=== PATIENT | female | born 1980 | race Caucasian/White ===

== ENCOUNTER → 2018-02-24 | Outpatient (CLI) | payer OTHER ==
[~2018-02-24] MED LIST: ACETAMINOPHEN-120 ML PO; AMPHETAMINE SAL20 M1 PO; HYDROCODONE-AP1 EAC6 PO; METFORMIN HCL500 MG PO; PROZAC10 MG PO; XANAX 0.5 MG0.5 MG PO; [UNRECOGNIZED DRUG - OTHER]
== END ==
LOC: CAT 09:20
DX: M54.5 Low back pain (principal); R82.99 Other abnormal findings in urine; R30.0 Dysuria; R31.29 Other microscopic hematuria

== ENCOUNTER → 2018-08-22 | Outpatient (CLI) | payer OTHER | LOC: RAD 13:56 | DX: R07.81 Pleurodynia (principal); F32.9 Major depressive disorder, single episode, unspecified; E28.2 Polycystic ovarian syndrome; F17.210 Nicotine dependence, cigarettes, uncomplicated; Z72.89 Other problems related to lifestyle ==

== ENCOUNTER → 2018-09-08 | Outpatient (CLI) | payer OTHER | LOC: MRI 09-07 16:42 | DX: M47.26 Other spondylosis with radiculopathy, lumbar region (principal); M51.16 Intervertebral disc disorders with radiculopathy, lumbar region ==

== ENCOUNTER → 2018-10-30 | Outpatient (CLI) | payer OTHER ==
[~2018-10-30] VITALS: Ht 157.5 cm; Wt 67.6 kg
[~2018-10-30] MED LIST changes: +BRINTELLIX5 MG PO; +DURAGESIC1 EACH TRANSDERM; +MYDAYIS ER 1212.5 MG PO; +NEURONTIN 300300 M1 PO; +VITAMIN D5000 UNIT PO; +ZOFRAN ODT4 MG DISSOLVE
--- NOTE | ~2018-10-30 | HPC ---
[facility] [place] [address] PAIN MANAGEMENT CONSULTATION Name: EDWIN SALINAS Room #: REG LAWRENCE Vargas.#: [id number] Admission: 10/30/18 Attend Phys: Kelvin Medina MD Discharge: Date of : 84 Report #: [id number] THIS REPORT FOR: //name// CC: JULIUS Medina CHIEF COMPLAINT: Chronic pain in the low back. HISTORY OF PRESENT ILLNESS: The patient is a 38-year-old who I am seeing today at the request of Dr. Marie. She reports that she has had constant aching pain in her low back dating back to 2013. There was no inciting injury. No motor vehicle accident. She reports the pain came on gradually. She was initially treated with physical therapy for 6 weeks and reported little improvement. She saw a chiropractor for a month also and gave up on that because of its lack of improvement. She has tried some massage at home and uses a TENS unit on a regular basis. She describes her pain as across the low back, continuous, steady, burning, shooting, sharp and stabbing, increased with cold temperature, prolonged sitting and standing. She obtains relief from heat, rest, TENS unit and medication. 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 She has randomly taken a day or two off work because of chronic pain. She is single, and has 2 daughters, 17 and 11 years old. She is able to remain active with her family. We did not go into great detail about the stresses of raising preteen and teenage daughters. This is a stressful time of life. She continues to smoke 1 pack of cigarettes a day and has done so for 20 years. She drinks alcohol in the social setting 4-5 times per week. She has a group of friends that she associates with, most of whom also smokes cigarettes. She reports that she has had chronic depression and anxiety, but has not seen a psychologist or psychiatrist. Pain drawing shows her physical discomfort as a burning, stabbing sensation bilaterally across the low back with similar sensations into the buttocks and stabbing sensation at times into her knees. The pain does radiate down the posterior aspect of both legs and what would be described as a radicular distribution of S1. MEDICATIONS: Trintellix 5 mg daily, gabapentin 300 mg b.i.d., hydrocodone 5/325 one tablet every 4-[address] Krause is her current provider of opioids, and she is allowed 90 tablets per month. There has been a tapering over the course of the last couple of months. She is also on fentanyl patch, which was once 25 mcg, now down to 12. Metformin 500 mg 1 at bedtime, control pills 1 at bedtime, vitamin D 1 cap weekly 50,000 units. Alprazolam 0.5 mg 1 tablet t.i.d. p.r.n. Mydayis 12.5 mg [address] [address] PAIN MANAGEMENT CONSULTATION Name: EDWIN SALINAS Room #: REG LAWRENCE Mendoza#: [id number] Admission: 10/30/18 Attend Phys: Kelvin Medina MD Discharge: Date of : 84 Report #: [id number] ALLERGIES: SULFA. PAST MEDICAL HISTORY: Remarkable for chronic depression and chronic back pain. PAST SURGICAL HISTORY: D and C in 2016. Laparoscopic cholecystectomy in 2017. SOCIAL HISTORY: Included in the discussion of history of present illness. REVIEW OF SYSTEMS: Completed by the patient, describes occasional nausea, nocturia, numbness and tingling sensations into the legs, nervousness and depression. PHYSICAL EXAMINATION: GENERAL: She is a pleasant, 38-year-old, soft spoken and direct. VITAL SIGNS: Blood pressure 114/70, heart rate 109, respirations 16. She is 5 feet, 2 inches, 149 pounds, BMI 27.2. She is able to move independently from sitting to standing position. Her gait is nonantalgic. CHEST: Clear. CARDIAC: Rhythm is regular. MUSCULOSKELETAL: Examination of her spine reveals good alignment. No evidence of scoliosis. There is no tenderness in the upper back. Mild tenderness across the lumbosacral segment. Range of motion of the spine is excellent in flexion, extension, rotation, [id number] tilt. Straight leg raising is mildly positive for some discomfort into the posterior aspect of each leg. Mild tenderness noted in each knee. No edema is noted. Deep tendon reflexes are 2+ knees and ankles and sensation is intact in lower extremities. MRI is reviewed from 09/08/2018. It shows only mild lumbar spondylosis. There is no significant disk bulging or protrusion at any level. There is no significant central spinal canal or neural foraminal stenosis at any level. This would be considered normal MRI. Bilateral hip x-rays reviewed and negative evidence of degenerative disease. IMPRESSION: Chronic low back pain with lumbago. RECOMMENDATIONS: I spent most of today's visit after assessment and counseling. Her pain is very treatable. The most important aspect of treatment of course is wellness behaviors which would encompass a regular exercise program, avoidance of tobacco and tapering of medications, which may have significant side effects and long-term concerns for a 38-year-old with normal x-rays. She is motivated to try and taper her medications as she has seen many patients who she feels are overmedicated in current health care. The goal is to minimize the use of centrally acting medications. All opioids remain of focus. We discussed the issue of polypharmacy at some length. She is on 5 centrally acting medications. We also include alcohol and tobacco. There are 7 [facility] [address] [place] [address] PAIN MANAGEMENT CONSULTATION Name: EDWIN SALINAS [facility] #: [facility].#: [id number] Admission: 10/30/18 Attend Phys: Kelvin Medina MD Discharge: Date of : 84 Report #: [id number] medications or habits that have some significant effect on her. It would be a goal to taper her opioids, and I will continue to assist in this process. I would recommend that she finish her current prescription of fentanyl patches and at 12 mcg, she should be able to easily stop without significant withdrawal if she continues on her hydrocodone. We would then work on hydrocodone and tapering at the lowest effective dose, and I would hope that in this 38-year-old, we might be able to completely eliminate opioids altogether. We raised the question of polypharmacy several times. There is a 38-year-old need to be on antidepressant stimulant opioid nerve pain medication? She would like to be free of these medicines, but is obviously concerned about how she will feel off them. Her chronic depression, certainly needs to be addressed, and this may be improved by wellness behaviors, particularly by exercise, and we decided medical evidence that shows exercise helping mood. One step at a time. I will help to try and taper off opioid medication and reinforce wellness as I am sure Dr. Marie is doing in her office. I think there is good reason for optimism here that she can learn to manage her pain without medication. No injections are indicated at this time. By: [id number] Kelvin Medina MD /nt
[2018-10-30 09:20] VITALS: BP 114/70
== END ==
LOC: PAIN 00:33
DX: M54.40 Lumbago with sciatica, unspecified side (principal); G89.29 Other chronic pain; Z79.899 Other long term (current) drug therapy

== ENCOUNTER → 2018-11-23 | Outpatient (CLI) | payer OTHER ==
[~2018-11-23] MED LIST changes: +HYDROCODON-ACE1 EAC7 PO
== END ==
LOC: CAT 15:11
DX: K57.30 Diverticulosis of large intestine without perforation or abscess without bleeding (principal); N83.292 Other ovarian cyst, left side; K46.9 Unspecified abdominal hernia without obstruction or gangrene; R31.29 Other microscopic hematuria; Z90.49 Acquired absence of other specified parts of digestive tract

== ENCOUNTER → 2018-11-30 | Outpatient (CLI) | payer OTHER ==
[~2018-11-30] VITALS: Ht 162.6 cm; Wt 69.2 kg
[~2018-11-30] MED LIST changes: +VYVANSE40 MG PO
--- NOTE | ~2018-11-30 | HPC ---
[facility] [place] [address] PAIN MANAGEMENT CONSULTATION Name: EDWIN SALINAS Room #: REG LAWRENCE Vargas.#: [id number] Admission: 11/30/18 Attend Phys: Kelvin Medina MD Discharge: Date of : 84 Report #: [id number] THIS REPORT FOR: //name// CC: Ana María Medina DATE OF SERVICE: 11/30/2018 Followup visit for chronic back pain and polypharmacy. Complains also of radiating pain into both legs with radiculopathy. The patient returns to the pain clinic today in followup for medication management. She is now off of fentanyl patch. She has done this successfully without significant increases in her pain. I applauded this effort and it shows that she is conscientiously focusing on reducing her reliance on medication. I told her directly today that I think that she has a chemical coper. This is a pain management descriptive term for individuals who reach to the substance to help manage a variety of symptoms. She remains on a number of medications in our focus over the next several months, perhaps years, will be to decrease her reliance on medication. We have done this by focusing on wellness behaviors. I have shared with her stress management article just recently published on one of the general magazines the week describing the importance of exercise and stress management strategies, which are described. We talked about the importance of diet, exercise and cessation of smoking. Tobacco fits into the chemical coping and she agrees that she uses tobacco for stress management. We reviewed life situation. She is and living with her parents with her 2 daughters, 11 and 17. The girls are doing fine. She is planning to move back to [place] where the girls are going to school. This will make it easier than the long drive that she has. She feels that there is support in the home from her parents, but she also appears to be ready to make the move out on her own. She reports some socializing with friends. She is working and has missed a few days. PHYSICAL EXAMINATION: Blood pressure is 116/63, heart rate 90, respirations 14. Pain intensity 5/10. BMI 26.2. She has pain across the low back, bilateral straight leg raising discomfort pain radiating into her legs. Pain follows an L4-L5 and L5-S1 distribution. X-rays reviewed demonstrating mild lumbar spondylosis without significant bulging. IMPRESSION: Chronic back pain with radicular symptoms. [facility] [address] [place] [address] PAIN MANAGEMENT CONSULTATION Name: EDWIN SALINAS Room #: REG CLFredis VargasCecy#: [id number] Admission: 11/30/18 Attend Phys: Kelvin Medina MD Discharge: Date of : 84 Report #: [id number] PLAN: 1. Continue to taper medications. I have told her that I will prescribe no more than 4 hydrocodone today. It should last 6 hours. She can space them out. This will drop her from 6 per day. I would like for her not to reach out to Dr. Marie to add additional medication to her regimen as she becomes adjusted to a lower dose of opioids. That will be our only adjustment over the course of the next 1-2 months, although I have encouraged her to minimize her use of p.r.n. medications such as alprazolam. We also talked about future efforts to decrease her reliance on Mydayis, which is a stimulant for ADHD. This may be affecting her sleep and we also reviewed the importance of sleep in management of stress, pain and anxiety. I have suggested an epidural injection to help with back pain and radiculopathy. The goal of this would be to use the pain relief achieved from the injection to further stimulate her willingness to reduce reliance on medication. The epidural will be preauthorized and scheduled sometime in the next 1-2 weeks. She was given 1 prescription for hydrocodone , #120 tablets. Followup visit planned for epidural in the next 2 weeks. By: [id number] Kelvin Medina MD /nt
[2018-11-30 09:41] VITALS: BP 116/63
--- NOTE | 2018-11-30 10:14 | NUR ---
Pain Clinic Assessment: 1. History of Osteoarthritis: Not Applicable History of Rheumatoid Arthritis: Not Applicable 2. Height: 5 ft. 4 in. 162.6 cm. Weight: 152.6 lb. oz. 69.219 kg. Patient's BMI: 26.2 3. Vital Signs: BP: 116/63 Pulse: 90 Resp: 14 Temp: 02 Sat: 100 ECG Mon: 4. Pain Intensity: 5 5. Fall Risk: Dizziness: N Needs help standing or walking: N Fallen in the last 3 months: N Fall risk comments: 6. Patient on Blood Thinner: None 7. History of Hypertension: N 8. Opioid Therapy greater than 6 weeks: Y Opiate Contract Signed: 11/30/18 9. Risk Assessment Tool Provided: 5-MID 10. Functional Assessment Tool: 11. Recreational Drug Use: Never Drug Type: Tobacco Use: Current Every Day Smoker Tobacco Type: Cigarettes Amount or Packs/day: 1 PPD How Many Years: 20 Alcohol Use: Yes Frequency: Special Occasions Quant: 2 TIMES MONTHLY
== END ==
LOC: PAIN 07:00
DX: M54.16 Radiculopathy, lumbar region (principal); Z79.899 Other long term (current) drug therapy

== ENCOUNTER → 2018-12-20 | Outpatient (CLI) | payer OTHER | LOC: RAD 13:50 | DX: R19.5 Other fecal abnormalities (principal) ==

== ENCOUNTER → 2019-01-11 | Outpatient (CLI) | payer OTHER ==
[~2019-01-11] VITALS: Ht 157.5 cm; Wt 70.8 kg
[2019-01-11 14:04] VITALS: BP 129/88
--- NOTE | 2019-01-11 14:08 | NUR ---
Pain Clinic Assessment: 1. History of Osteoarthritis: Not Applicable History of Rheumatoid Arthritis: Not Applicable 2. Height: 5 ft. 2 in. 157.5 cm. Weight: 156.0 lb. oz. 70.761 kg. Patient's BMI: 28.5 3. Vital Signs: BP: 129/88 Pulse: 103 Resp: 16 Temp: 02 Sat: 99 ECG Mon: 4. Pain Intensity: 6 5. Fall Risk: Dizziness: N Needs help standing or walking: N Fallen in the last 3 months: N Fall risk comments: 6. Patient on Blood Thinner: None 7. History of Hypertension: N 8. Opioid Therapy greater than 6 weeks: Y Opiate Contract Signed: 11/30/18 9. Risk Assessment Tool Provided: 5-MID 10. Functional Assessment Tool: 11. Recreational Drug Use: Never Drug Type: Tobacco Use: Current Every Day Smoker Tobacco Type: Cigarettes Amount or Packs/day: 1 pack How Many Years: 20 Alcohol Use: Yes Frequency: Quant:
--- NOTE | 2019-01-22 07:40 | HPC ---
[facility] [place] [address] [address] [place] [address] PAIN MANAGEMENT CONSULTATION Name: BREANNA SALINAS Room #: REG CL MLeroy.#: [id number] Admission: 01/11/19 ������������������ Attend Phys: Kelvin Medina MD Discharge: ������������������ Date of : 84 Report #: [id number] THIS REPORT FOR: //name// CC: Ana María Medina DATE OF SERVICE: 01/11/2019 Followup visit for low back pain radiating into both legs, radicular distribution of L5-S1. Breanna returns to pain clinic today complaining of pain still about the same in her legs, inner and outer thighs, cramping down the back of her legs into her feet and toes following an L5-S1 distribution. Pain is worse with standing, walking and cold weather. She scores pain intensity as 6/10. We have slowly dropped her from an MME of over 100 down to a 40 MME and she has complained of a little with the most recent drop to hydrocodone 5/325 four times daily for a total of 20 MME. She continues also on centrally acting drugs, Trintellix, Vyvanse, gabapentin and alprazolam. We had discussed an epidural injection for what appeared to be radicular symptoms. Her goal would be to provide pain relief with the injection and then proceed with a reduction further of her hydrocodone. The first goal is to get her down and hopefully off of daily opioids. She might be able to make that transition as early as a month from now. I talked a lot about wellness behaviors including daily walking, tobacco discontinuation. I have given her some strategies to help with that. PHYSICAL EXAMINATION: A pleasant, does not appear to be in much discomfort at this time. Blood pressure 129/88, heart rate 103, BMI 28.5. Gait is normal without antalgic features. Negative straight leg raising discomfort. Sensation is intact in the legs. No focal weakness. IMPRESSION: Chronic low back pain with lumbar spondylosis. Lumbar radiculopathy. Facet arthropathy with central disk protrusion at L5-S1. PROCEDURE: L5-S1 epidural injection. DESCRIPTION OF PROCEDURE: She was taken to fluoroscopic suite for treatment, placed prone, skin prepped with ChloraPrep. Skin anesthetized over the L5-S1 interspace. A 20-gauge Tuohy epidural needle advanced in first attempt in the epidural space using loss of resistance technique. There was no blood or CSF aspirated. 1 mL of Omnipaque injected with good spread of dye observed in the epidural space followed by 3 mL of 0.5% lidocaine mixed with 80 mg of [address] [address] PAIN MANAGEMENT CONSULTATION Name: BREANNA SALINAS Room #: REG [facility] Reji#: [id number] Admission: 01/11/19 ������������������ Attend Phys: Kelvin Medina MD Discharge: ������������������ Date of : 84 Report #: [id number] triamcinolone. She tolerated the procedure well. She was observed for 45 minutes and discharged. Pain was reduced slightly at discharge. I did renew her hydrocodone 5/325 for 4 tablets per day. I have told her at next visit when the weather is better and she has an opportunity to get outside more and walk, I would like her to reduce her dose to 3 or 2 tablets a day. ��������������������������������������������� <ELECTRONICALLY SIGNED> ���������������������������������������� By: Kelvin Medina MD ��������������������������������������������� 01/22/19 [id number] [id number] Kelvin Medina MD /nt
== END | disposition home or self-care (01) ==
LOC: PAIN 12-25 13:59
DX: M51.16 Intervertebral disc disorders with radiculopathy, lumbar region (principal); M47.26 Other spondylosis with radiculopathy, lumbar region; G89.29 Other chronic pain; F17.210 Nicotine dependence, cigarettes, uncomplicated; Z79.891 Long term (current) use of opiate analgesic; Z88.2 Allergy status to sulfonamides; Z79.899 Other long term (current) drug therapy; Z98.890 Other specified postprocedural states

== ENCOUNTER → 2019-08-20 | Outpatient (CLI) | payer OTHER | LOC: PAIN 03-07 15:01 → ULTRA 07:53 | DX: E28.2 Polycystic ovarian syndrome (principal) ==

== ENCOUNTER → 2019-09-11 | Outpatient (CLI) | payer OTHER | LOC: NUC 09-05 11:27 | DX: N92.4 Excessive bleeding in the premenopausal period (principal); Z88.2 Allergy status to sulfonamides; Z88.8 Allergy status to other drugs, medicaments and biological substances; Z82.62 Family history of osteoporosis ==

== ENCOUNTER → 2019-11-27 | Outpatient (CLI) | payer OTHER | LOC: RAD 09:45 | DX: Z12.31 Encounter for screening mammogram for malignant neoplasm of breast (principal) ==